=== PATIENT | male | born 1950 | race Caucasian/White ===

== ENCOUNTER 2025-05-31 06:16 | Day surgery (SDC) | payer BC ==
[2025-05-27 10:16] VITALS: BMI 25.0
[2025-05-31] MEDS ORDERED: BUPIVACAINE HCL/PF 0.25% (2.5MG/ML) 10 ML VIAL ONE (11:17)
[2025-05-31] MEDS ORDERED: MIDAZOLAM HCL 2 MG/2 ML SINGLE DOSE VIAL ONE (11:24)
[2025-05-31] MEDS ORDERED: PROPOFOL 20 ML ONE ×2 (11:29→13:07)
[2025-05-31] MEDS ORDERED: ROCURONIUM BROMIDE 50 MG/5 ML SYRINGE ONE (11:30)
[2025-05-31] MEDS ORDERED: LIDOCAINE HCL/PF 2% SDV 5ML VIAL ONE (11:59)
[2025-05-31] MEDS: BUPIVACAINE HCL/PF 0.25% (2.5MG/ML) 10 ML VIAL IJ ONE (12:29)
[2025-05-31] MEDS ORDERED: SUGAMMADEX SODIUM 200 MG/2 ML VIAL ONE (13:46)
[2025-05-31] MEDS ORDERED: ACETAMINOPHEN INJECTION 100 ML ONE (14:49)
[2025-05-31] MEDS: ACETAMINOPHEN 1000 MG/100 ML BAG IVPB ONE (14:53)
[2025-05-31] MEDS: LACTATED RINGERS SOLUTION 1,000 ML IV SCH (14:53)
[2025-05-31 16:07] VITALS: RESP 18
[2025-05-31] MEDS ORDERED: ACETAMINOPHEN 500 MG TABLET (FP) PO PRN (18:11)
[2025-06-01] MEDS: SPIRONOLACTONE 25 MG TABLET PO SCH (11:50)
[2025-06-01] MEDS: FUROSEMIDE 40 MG TABLET (FP) PO SCH (11:52)
[2025-06-01 13:40] VITALS: BP 108/64; PULSE 64; TEMP 97.1
== END 2025-06-01 15:27 | disposition home or self-care (01) ==
LOC: JASU-SURG 06:16 → JASUSAT 06:16 → SUATTDRO 06:16 → J6S 18:19 → JASUSAT 06-01 15:27
PROVIDERS: ATTEND Internal Medicine
PROC: 8E0W4CZ Robotic Assisted Procedure of Trunk Region, Percutaneous Endoscopic Approach (ICD-10-PCS; 2025-05-31)
PROC: 0YU54JZ Supplement Right Inguinal Region with Synthetic Substitute, Percutaneous Endoscopic Approach (ICD-10-PCS; principal; 2025-05-31 10:45)
DX: K40.90 Unilateral inguinal hernia, without obstruction or gangrene, not specified as recurrent (principal)
CPT/HCPCS: 49650; S2900; 94760; C1781